=== PATIENT | male | born 1990 | race Caucasian/White ===

== ENCOUNTER 2017-03-12 12:00 | Inpatient (IN) | payer SELFPAY ==
--- NOTE | ~2017-03-12 | PN ---
Unit #: [id number] #: [id number] Patient: MEREDITH OROZCO [id number] [facility] [address] [place] [address] [id number] MR#: [id number] NAME: MEREDITH OROZCO ROOM: P208 Age: 26 Sex: M Admission Date: 03/12/2017 : 1990 Attending Physician: James Marinelli M.D. Admitting Physician: James Marinelli M.D. Primary Care Physician: Ab Hidalgo M.D. [facility] PROGRESS NOTES DATE March 13, 2017 DISCUSSION Mr. Orozco is a 26-year-old white male, who was seen today and chart was reviewed and the case was discussed with the staff. He has been anxious, withdrawn, and seclusive to himself. Meanwhile, he reports that he has been feeling better and less anger, and aggression. MENTAL STATUS EXAMINATION Young white male, who was casually dressed with fair personal hygiene and appears to be in no acute distress or discomfort. He was awake and alert on interaction with intact orientation. His mood is anxious with a congruent affect. He denies any suicidal or homicidal ideations. His insight and judgment remain slightly impaired. TREATMENT PLAN 1. We will continue him on his current medications and treatment protocol, and will monitor his response to the medications, and make further adjustments as needed. 2. We will continue to followup. Dictated by... Yulissa Pacheco/ewa TD: 03/14/2017 15:04 JOB #: [id number] [facility] PROGRESS NOTES Page 1 of 1 X James Marinelli MD PROGRESS NOTE
--- NOTE | ~2017-03-12 | HP ---
Unit #: [id number] #: [id number] Patient: MEREDITH OROZCO [id number] [place] [address] [id number] MR#: [id number] NAME: MEREDITH OROZCO. ROOM: P208 Age: 26 Sex: M Admission Date: 03/12/2017 : 1990 Attending Physician: James Marinelli M.D. Admitting Physician: James Marinelli M.D. Primary Care Physician: Ab Hidalgo M.D. HISTORY AND PHYSICAL HISTORY OF PRESENT ILLNESS The patient is a 26-year-old male who states he is here because he went on a drinking binge and had some suicidal ideations. PAST MEDICAL HISTORY None. PAST SURGICAL HISTORY None. SOCIAL HISTORY Positive for alcohol. ALLERGIES None. FAMILY HISTORY Noncontributory. REVIEW OF SYSTEMS CONSTITUTIONAL: No fever or chills. HEENT: Denies any sore throat, ear pain or runny nose. CARDIOVASCULAR: Denies chest pain, irregular heart rhythm or palpitations. CHEST: Denies shortness of breath or cough. No hemoptysis. GASTROINTESTINAL: Denies nausea, vomiting, diarrhea or chronic constipation. ENDOCRINE: Denies history of increased thirst or urination. No recent significant weight loss or gain. GENITOURINARY: Denies dysuria, frequency, or hematuria. SKIN: Denies any rashes. HEMATOLOGIC: Denies history of increased bleeding or bruising. MUSCULOSKELETAL: Denies any hot, swollen joints. No generalized muscle pain. NEUROLOGIC: Denies problems with vision or speech. No frequent, severe headaches. No numbness, tingling or weakness in any extremities. Denies loss of bladder or bowel control. CURRENT MEDICATIONS None. PHYSICAL EXAMINATION Unit #: [id number] #: [id number] Patient: MEREDITH OROZCO GENERAL: Alert, oriented in no acute distress. VITAL SIGNS: Not available. HEIGHT: 6 feet 3 inches WEIGHT: 225 pounds SKIN: Scabbed areas to bilateral knees, right hand. Bruise to the right shoulder. Scar to the right subscapular area. Scabs to bilateral feet. HEENT: Normocephalic. TMs not viewed. Oral and nasal passages clear. Conjunctivae clear. PERRLA. EOMs intact. NECK: Supple without lymphadenopathy or thyromegaly. HEART: Regular rate and rhythm without murmur. LUNGS: Clear. ABDOMEN: Soft, nontender, without masses or hepatosplenomegaly. : Not done. EXTREMITIES: No evidence of cyanosis, clubbing or edema. Moves all without focal deficit. NEUROLOGICAL: Grossly within normal limits. Cranial Nerves: II: Visual nice are intact. III, IV AND : Extraocular movements are intact. Pupils are equal, round and reactive to light. V: Facial sensation is grossly normal. VII: Facial movements and expression are normal. VIII: Auditory acuity grossly intact. IX, X: Uvula is midline. Phonation is normal. XI: Patient shrugs shoulders and turns head normally. XII: Tongue protrudes in the midline. Sensory and Motor Function: Sensory and motor sensation is grossly normal. Motor: moves all extremities well. Coordination: Gait is normal. Deep Tendon Reflexes: Intact. IMPRESSION Psychiatric admission. RECOMMENDATIONS Psychiatric, per psychiatrist. MEDICAL: I see no contraindications to participating in facility's activities. MEDICAL PROGNOSIS Good. Dictated by... Qian Menon/ryan TD: 03/13/2017 03:49 JOB #: [id number] Unit #: [id number] #: [id number] Patient: MEREDITH OROZCO HISTORY AND PHYSICAL Page 1 of X Isabel Navarro APR X HISTORY AND PHYSICAL
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
--- NOTE | ~2017-03-12 | DS ---
Unit #: [id number] #: [id number] [facility]: [facility]CO [id number] [facility] [address] [place] [address] [id number] MR#: [id number] NAME: MEREDITH OROZCO. ROOM: P208 Age: 26 Sex: M Admission Date: 03/12/2017 : 1990 Discharge Date: 03/14/2017 Attending Physician: James Marinelli M.D. Primary Care Physician: Ab Hidalgo M.D. DISCHARGE SUMMARY IDENTIFYING DATA Mr. Orozco is a 26-year-old single white male, who is a resident of [place], [place], and was self-referred to the hospital. DISCHARGE DIAGNOSES Psychiatric: Major depressive disorder, recurrent, moderate, without psychotic features. Medical: None. Stressors: Moderate psychosocial stressors. HISTORY OF PRESENT ILLNESS Please see initial psychiatric evaluation for details. PAST PSYCHIATRIC HISTORY Please see initial psychiatric evaluation for details. PAST MEDICAL HISTORY Please see initial psychiatric evaluation for details. HOSPITAL COURSE The patient was admitted to the adult chemical dependency unit at [facility] and was oriented to the hospital environment. Routine p.r.n. medications were initiated, and he was started back on his home medications. However, he was seen to be doing much better and was denying any thoughts of wanting to hurt himself or anyone else, and stated that he just was having a bad day and was not seen to be agitated, aggressive, neither did he appear to be danger to self or anyone else, and as such, it was decided that he will be discharged home on his own request and we will recommend ongoing outpatient psychiatric treatment. DISCHARGE MEDICATIONS Celexa 20 mg a day for depression. DISCHARGE CONDITION Stable. PROGNOSIS Fair. Dictated by... James Marinelli M.D. IAA/modl Unit #: [id number] #: [id number] Patient: MEREDITH OROZCO TD: 03/15/2017 01:34 JOB #: [id number] DISCHARGE SUMMARY Page 1 of 1 X James Marinelli MD X DISCHARGE SUMMARY
[~2017-03-12 12:00] MED LIST: CHANTIX PO; KEFLEX500 MG PO; LORTAB 7.5-5001 TAB PO; NO MEDICATIONS; VOLTAREN75 MG PO
[2017-03-13 10:17] LABS: ALBUMIN SERUM 4.7 g/dL (3.5-5.0); BUN/CREATININE RATIO 7.5; CALCIUM SERUM 9.6 mg/dL (8.4-10.2); CREATININE SERUM 1.2 mg/dL (0.6-1.4); GLOM FILT RATE Estimated 81.8 mL/min (>60); POTASSIUM 4.7 mmol/L (3.5-5.1); PROTEIN TOTAL SERUM 7.2 g/dL (6.0-8.3)
== END 2017-03-14 13:30 | disposition home or self-care (01) | DRG 885 ==
LOC: P2S 14:34
PROVIDERS: Psychiatry & Neurology Psychiatry
PROC: HZ2ZZZZ Detoxification Services for Substance Abuse Treatment (ICD-10-PCS; principal; 2017-03-12)
DX: F33.1 Major depressive disorder, recurrent, moderate (principal); R45.851 Suicidal ideations; F10.239 Alcohol dependence with withdrawal, unspecified; F14.10 Cocaine abuse, uncomplicated; F15.10 Other stimulant abuse, uncomplicated
CPT/HCPCS: 80053; 86592